=== PATIENT | female | born 1980 | race Caucasian/White ===

== ENCOUNTER 2023-12-06 20:30 | Observation (INO) | payer OTHER ==
[~2023-12-06] VITALS: Ht 162.6 cm; Wt 68.0 kg
[2023-12-06 21:22] VITALS: BP 124/74; PULSE 85; RESP 18; TEMP 98.1
[2023-12-06] MEDS ORDERED: MAGNESIUM (21:33)
[2023-12-06] MEDS ORDERED: PREN-543 PO (21:33)
[2023-12-06] MEDS ORDERED: cefTRIAXone 1,000 MG in LIDOCAINE MPF 1% 2.1 ML IM ONE (22:15)
[2023-12-06] MEDS ORDERED: cefTRIAXone 1,000 MG VIAL ONE (22:25)
== END 2023-12-06 23:00 | disposition home or self-care (01) ==
LOC: MLD 20:30
PROVIDERS: ADMIT Obstetrics & Gynecology; ATTEND Obstetrics & Gynecology
DX: O26.892 Other specified pregnancy related conditions, second trimester (principal); R10.9 Unspecified abdominal pain; Z3A.26 26 weeks gestation of pregnancy
CPT/HCPCS: 76817; 96372; G0378; J0696; Q0092; J2001

== ENCOUNTER 2023-12-09 09:23 | Observation (INO) | payer OTHER ==
[~2023-12-09] VITALS: Ht 162.6 cm; Wt 69.9 kg
[~2023-12-09 09:23] MED LIST: MAGNESIUM; PREN-543 PO
[2023-12-09 09:45] VITALS: BP 117/71; PULSE 73; RESP 18; TEMP 96.8
[2023-12-09] MEDS ORDERED: BETAMETH ACET/BETAMETH NA PH 30 MG/5 ML VIAL IM SCH ×2 (10:00→10:15)
== END 2023-12-09 10:44 | disposition home or self-care (01) ==
LOC: MLD 09:23
PROVIDERS: ADMIT Obstetrics & Gynecology; ATTEND Obstetrics & Gynecology
DX: O60.02 Preterm labor without delivery, second trimester (principal); Z3A.26 26 weeks gestation of pregnancy
CPT/HCPCS: 96372; G0378; G0379; J0702

== ENCOUNTER 2023-12-10 09:56 | Observation (INO) | payer OTHER ==
[~2023-12-10] VITALS: Ht 162.6 cm; Wt 69.9 kg
[2023-12-10] MEDS ORDERED: BETAMETH ACET/BETAMETH NA PH 30 MG/5 ML VIAL IM SCH (10:05)
[2023-12-10 11:53] VITALS: BP 122/66; PULSE 92; RESP 18; TEMP 97.7
== END 2023-12-10 10:45 | disposition home or self-care (01) ==
LOC: MLD 09:56
PROVIDERS: ADMIT Obstetrics & Gynecology; ATTEND Obstetrics & Gynecology
DX: O60.02 Preterm labor without delivery, second trimester (principal); O09.522 Supervision of elderly multigravida, second trimester; Z3A.26 26 weeks gestation of pregnancy
CPT/HCPCS: 96372; G0378; J0702

== ENCOUNTER 2024-03-10 07:09 | Inpatient (IN) | payer OTHER ==
[~2024-03-10] VITALS: Ht 157.5 cm; Wt 74.4 kg
[~2024-03-10 07:09] MED LIST changes: -MAGNESIUM
[2024-03-10 07:35] VITALS: BP 161/90; PULSE 64; RESP 18; TEMP 97.9
[2024-03-10] MEDS ORDERED: METHYLERGONOVINE 0.2 MG/ML AMP IM PRN ×2 (07:35→20:05)
[2024-03-10] MEDS ORDERED: CARBOPROST 250 MCG/ML AMP IM PRN (07:35)
[2024-03-10] MEDS ORDERED: LACTATED RINGERS 500 ML IV ONE (07:35)
[2024-03-10 08:05] LABS: BASOPHILS % (AUTO) 0.4 % (0.0-2.0); EOSINOPHILS # (AUTO) 0.1 K/uL (0-0.4); EOSINOPHILS % (AUTO) 0.8 % (0.0-4.0); HEMATOCRIT 45.4 % (36-48); HEMOGLOBIN 15.5 g/dL (12.0-16.0); LYMPHOCYTES % (AUTO) 19.9 % (20.5-51.1); MEAN CORPUSCULAR HEMOGLOBIN 30 pg (27-31); MEAN CORPUSCULAR HGB CONC 34 g/dL (33-37); MEAN CORPUSCULAR VOLUME 89.2 fL (80-94); MONOCYTES # (AUTO) 0.5 K/uL (0.8-1.0); MONOCYTES % (AUTO) 5.4 % (1.7-9.3); NEUTROPHILS # (AUTO) 7.5 K/uL (1.8-7.7); NEUTROPHILS % (AUTO) 73.5 % (42.2-75.2); PLATELET COUNT (AUTO) 164 K/uL (140-450); RED BLOOD CELL COUNT(AUTO) 5.09 MIL/uL (4.20-5.40); RED CELL DISTRIBUTION WIDTH 13.6 % (11.6-13.7); WHITE BLOOD COUNT (AUTO) 10.2 K/uL (4.8-10.8)
[2024-03-10] MEDS: LACTATED RINGERS 1,000 ML IV SCH (08:15)
[2024-03-10] MEDS: MAG SULF 2000 MG/WATER PREMIX 100 ML IV ONE (08:18)
[2024-03-10 08:19] LABS: APPEARANCE,URINE CLEAR (CLEAR); BILIRUBIN,URINE NEGATIVE (NEGATIVE); BLOOD, URINE NEGATIVE (NEGATIVE); COLOR,URINE YELLOW (YELLOW); LEUKOCYTE ESTERASE ,URINE 2+ (NEGATIVE); NITRITE, URINE NEGATIVE (NEGATIVE); PROTEIN,URINE NEGATIVE (NEGATIVE); UGLUCOSE NEGATIVE (NEGATIVE); UROBILINOGEN,URINE 0.2 EU/dL (0.2 - 1)
[2024-03-10 08:40] LABS: INR 0.88 (0.8-1.2); PARTIAL THROMBOPLASTIN TIME 25.9 secs (22-35.6); PROTHROMBIN TIME 9.3 secs (10.8-13.4)
[2024-03-10 08:45] LABS: ANION GAP 15.8 (8-16); CALCIUM 9.5 mg/dL (8.5-10.1); CARBON DIOXIDE 25.1 mmol/L (21-32); CREATININE 0.7 mg/dL (0.6-1.3); POTASSIUM 3.9 mmol/L (3.5-5.1)
[2024-03-10 08:51] LABS: BACTERIA,URINE OCCASSIONAL /HPF (None Seen); RBC,URINE 0-5 /HPF (0-5); SQUAMOUS EPITHELIAL CELL,UR 0-3 (FEW) /LPF (0-3 (FEW))
[2024-03-10 08:52] LABS: ALBUMIN 2.8 g/dL (3.4-5.0); TOTAL BILIRUBIN 0.3 mg/dL (0.0-1.0); TOTAL PROTEIN, SERUM 7.2 g/dL (6.4-8.2); URIC ACID 4.8 mg/dL (2.6-7.2)
[2024-03-10] MEDS: MAG SULF 20 GM/H2O PREMIX DRIP 500 ML IV PRN (09:05)
[2024-03-10] MEDS: OXYTOCIN/0.9 % SODIUM CHLORIDE 500 ML IV SCH (10:38)
[2024-03-10] MEDS ORDERED: ROPIVACAINE 0.2%/NS PREMIX 200 ML EPI ONE (11:43)
[2024-03-10 16:08] LABS: URINE TOTAL PROTEIN 37.6 mg/dL (0-12); URINE TPRO CREAT RATIO 0.5 (0-0.20)
[2024-03-10] MEDS ORDERED: ceFAZolin 2,000 MG VIAL ONE (16:21)
[2024-03-10] MEDS ORDERED: CITRIC ACID/SODIUM CITRATE 30 ML UDC PO ONE (16:40)
[2024-03-10] MEDS: CITRIC ACID/SODIUM CITRATE 30 ML UDC PO SCH (16:48)
[2024-03-10] MEDS ORDERED: MORPHINE PRES FREE 5 MG/10 ML AMP IV ONE (16:58)
[2024-03-10] MEDS ORDERED: fentaNYL citrate 0.05 MG/ML VIAL ONE (16:58)
[2024-03-10] MEDS ORDERED: LIDOCAINE/EPI MPF 2%1:200000 10 ML VIAL INJ ONE (16:58)
[2024-03-10] MEDS ORDERED: diphenhydrAMINE 50 MG/ML VIAL IVP PRN (18:20)
[2024-03-10] MEDS ORDERED: ONDANSETRON 4 MG/2 ML VIAL IVP PRN (18:20)
[2024-03-10] MEDS ORDERED: NALOXONE 0.4 MG/ML VIAL IVP PRN ×3 (18:20)
[2024-03-10] MEDS: MAG SULF 2000 MG/WATER PREMIX 50 ML IV ONE (19:05)
[2024-03-10] MEDS ORDERED: MEASLES, MUMPS, AND RUBELLA 1 VIAL SQVAC ONE (20:05)
[2024-03-10] MEDS ORDERED: KETOROLAC 30 MG/ML VIAL IVP PRN (20:05)
[2024-03-10] MEDS ORDERED: bisacodyL 5 MG TABEC PO PRN (20:05)
[2024-03-11] MEDS: KETOROLAC 30 MG/ML VIAL IM/IVP SCH (00:07)
[2024-03-11 05:37] LABS: BASOPHILS % (AUTO) 0.1 % (0.0-2.0); HEMATOCRIT 36.1 % (36-48); HEMOGLOBIN 12.4 g/dL (12.0-16.0); LYMPHOCYTES % (AUTO) 7.2 % (20.5-51.1); MEAN CORPUSCULAR HEMOGLOBIN 31 pg (27-31); MEAN CORPUSCULAR HGB CONC 34 g/dL (33-37); MONOCYTES # (AUTO) 0.8 K/uL (0.8-1.0); MONOCYTES % (AUTO) 5.9 % (1.7-9.3); NEUTROPHILS % (AUTO) 86.8 % (42.2-75.2); PLATELET COUNT (AUTO) 128 K/uL (140-450); RED BLOOD CELL COUNT(AUTO) 4.01 MIL/uL (4.20-5.40); RED CELL DISTRIBUTION WIDTH 13.2 % (11.6-13.7); WHITE BLOOD COUNT (AUTO) 13.9 K/uL (4.8-10.8)
[2024-03-11] MEDS: oxyCODONE/APAP 5/325 MG 1 TAB TAB PO PRN (19:40)
[2024-03-11] MEDS ORDERED: IBUPROFEN 800 MG TAB PO PRN (21:05)
[2024-03-11] MEDS ORDERED: oxyCODONE/APAP 5/325 MG 1 TAB TAB PO PRN (21:05)
[2024-03-12] MEDS ORDERED: CAMERA MC ONE (02:10)
[2024-03-12] MEDS: SIMETHICONE 80 MG TAB.CHEW PO PRN (02:23)
== END 2024-03-12 17:40 | disposition home or self-care (01) | DRG 540 ==
LOC: MLD 07:09 → OBSVTOIN 07:30 → MFCC 03-11 08:00
PROVIDERS: ADMIT Obstetrics & Gynecology; ATTEND Obstetrics & Gynecology
PROC: 10D00Z1 Extraction of Products of Conception, Low, Open Approach (ICD-10-PCS; principal; 2024-03-11)
DX: O76 Abnormality in fetal heart rate and rhythm complicating labor and delivery (principal); O14.94 Unspecified pre-eclampsia, complicating childbirth; O13.4 Gestational [pregnancy-induced] hypertension without significant proteinuria, complicating childbirth; Z3A.39 39 weeks gestation of pregnancy; Z37.0 Single live birth
CPT/HCPCS: 36415; 51702; 76805; 80053; 81001; 82570; 82948; 83735; 84550; 85025; 85384; 85610; 85730; 86592; 86886; 86900; 86901; 87086; J0690; J1885; J2001; J2590; J2795; J3010; J3475; J7060; J7120; Q0092